=== PATIENT | male | born 1960 | race Caucasian/White ===

== ENCOUNTER 2017-11-27 22:08 | Inpatient (IN) | payer OTHER ==
[2017-11-28] MEDS ORDERED: ONDANSETRON 4 MG INJ IV
[2017-11-28] MEDS ORDERED: NACL 0.9% 3 ML SYG IV
[2017-11-28 00:54] LABS: ABNORMAL IP MESSAGE 1; HEMOGLOBIN 13.3 g/dl (14.0-18.0); MEAN CORPUSCULAR VOLUME 97.2 fl (82.0-101.0); MEAN PLATELET VOLUME 10.3 fl (7.4-10.4); PLATELET COUNT 94 10^3/UL (140-415); POSITIVE DIFF @See below; RED BLOOD COUNT 3.91 10^6/ul (4.70-6.10); RED CELL DISTRIBUTION WIDTH 18.4 % (11.5-14.5)
[2017-11-28 00:54] LABS: WHITE BLOOD COUNT 1.6 10^3/ul (4.8-10.8)
[2017-11-28 00:58] LABS: ADD MAN DIFF? YES
[2017-11-28 00:59] LABS: PATH REVIEW? YES
[2017-11-28 01:14] LABS: ANION GAP 23 (8-16); BLOOD UREA NITROGEN 8 mg/dl (7-20); CALCIUM 8.7 mg/dl (8.4-10.2); CARBON DIOXIDE 21 mmol/L (21-31); CHLORIDE 101 mmol/L (97-110); CREATININE 0.54 mg/dl (0.61-1.24); GLUCOSE 259 mg/dl (70-220); POTASSIUM 3.8 mmol/L (3.5-5.1); SODIUM 141 mmol/L (135-144)
[2017-11-28 01:21] LABS: B-TYPE NATRIURETIC PEPTIDE 42 PG/ML (0-125)
[2017-11-28] MEDS: CHLORDIAZEPOXIDE 25 MG CAP PO ×4 (01:36→20:33)
[2017-11-28 03:39] LABS: GIANT THROMBO% (M) 9 % (0-0); LYMPHOCYTES #M 0.2 10^3/ul (0.8-2.9); LYMPHOCYTES % (M) 15 % (15-51); MONOCYTES % (M) 4 % (0-11); MYELOCYTES % (M) 1 % (0-0); PLATELET ESTIMATE DECREASED; SEGMENTED NEUTROPHILS (M) % 80 % (39-77)
[2017-11-28] MEDS: ACETAMINOPHEN 325 MG TAB PO ×2 (03:56→10:32)
[2017-11-28 07:03] LABS: ADD MAN DIFF? NO
[2017-11-28 07:12] LABS: ABNORMAL IP MESSAGE 1; BASOPHILS % 0.2 % (0.0-2.0); HEMATOCRIT 37.8 % (42.0-52.0); HEMOGLOBIN 13.3 g/dl (14.0-18.0); LYMPHOCYTES # 0.6 10^3/ul (0.8-2.9); LYMPHOCYTES % 14.8 % (15.0-51.0); MEAN CORPUSCULAR HEMOGLOBIN 33.8 pg (29.0-33.0); MEAN CORPUSCULAR HGB CONC 35.2 g/dl (32.0-37.0); MEAN CORPUSCULAR VOLUME 96.2 fl (82.0-101.0); MEAN PLATELET VOLUME 11.1 fl (7.4-10.4); MONOCYTE # 0.3 10^3/ul (0.3-0.9); MONOCYTES % 8.1 % (0.0-11.0); NEUTROPHIL # 3.1 10^3/ul (1.6-7.5); NEUTROPHILS % 76.7 % (39.0-77.0); PLATELET COUNT 96 10^3/UL (140-415); POSITIVE DIFF @See below; RED BLOOD COUNT 3.93 10^6/ul (4.70-6.10)
[2017-11-28 07:12] LABS: WHITE BLOOD COUNT 4.1 10^3/ul (4.8-10.8)
[2017-11-28 07:34] LABS: ALANINE AMINOTRANSFERASE 101 IU/L (13-69); ALBUMIN 3.9 g/dl (3.3-4.9); ALKALINE PHOSPHATASE 114 IU/L (42-121); ANION GAP 18 (8-16); ASPARTATE AMINO TRANSFERASE 222 IU/L (15-46); BILIRUBIN,INDIRECT 0.8 mg/dl (0-1.1); BILIRUBIN,TOTAL 0.8 mg/dl (0.2-1.3); BLOOD UREA NITROGEN 8 mg/dl (7-20); CALCIUM 8.7 mg/dl (8.4-10.2); CARBON DIOXIDE 26 mmol/L (21-31); CHLORIDE 101 mmol/L (97-110); CHOL/HDL RATIO 2.5 RATIO; CHOLESTEROL 130 mg/dl (100-200); GLUCOSE 141 mg/dl (70-220); HDL CHOLESTEROL 51 mg/dl (28-71); LDL CHOLESTEROL,CALCULATED 70 mg/dl; SODIUM 141 mmol/L (135-144); TOTAL PROTEIN 6.9 g/dl (6.1-8.1); TRIGLYCERIDES 46 mg/dl (0-149)
[2017-11-28 07:37] LABS: MAGNESIUM 0.8 mg/dl (1.7-2.5)
[2017-11-28 07:59] LABS: BENZODIAZEPINES Positive (NEGATIVE)
[2017-11-28 08:02] LABS: HEMOGLOBIN A1C 5.3 % (0-5.9)
[2017-11-28 08:12] LABS: AMPHETAMINE/METHAMPHETAMINE Negative (NEGATIVE); BARBITURATES Negative (NEGATIVE); CANNABINOIDS Negative (NEGATIVE); COCAINE Negative (NEGATIVE); OPIATES Negative (NEGATIVE)
[2017-11-28] MEDS: NITROGLYCERIN (SL) 0.4 MG TAB SL (08:22)
[2017-11-28] MEDS ORDERED: NITROGLYCERIN (SL) 0.4 MG TAB SL (08:30)
[2017-11-28 08:34] LABS: AADO2 Arterial 83.6 mmHg (7.0-24.0); Allen Test ACCEPTAB; Arterial Base Excess 3.9 mmol/L (-3.0-3); Arterial Blood Gas Oxygen Sat 93.5 mmHG (95.0-98.0); Arterial COHb 0.9 % (0.0-3.0); Arterial Fraction of Oxyhgb 92.5 % (93.0-99.0); Arterial HCO3 26.9 mmol/L (22.0-26.0); Arterial MetHb 0.2 % (0.0-1.5); Arterial Total Hemglobin 14.3 g/dl (12.0-18.0); Arterial pCO2 35.4 mmhg (35-45); MODE NASAL CANNULA; Site Right Radial
[2017-11-28] MEDS ORDERED: MULTIVITAMINS 10 ML, THIAMINE 100 MG, FOLIC ACID 1 MG in SOD CHLORIDE 0.9% 1,000 ML IVPB (09:00)
[2017-11-28] MEDS: MAGNESIUM SULFATE 3 GM in DEXTROSE 5% 100 ML IVPB (09:20)
[2017-11-28 09:25] LABS: CREATINE KINASE 94 IU/L (23-200)
[2017-11-28 09:38] LABS: CK INDEX 1.4
[2017-11-28 09:39] LABS: CK-MB 1.36 ng/ml (0.0-2.4); TROPONIN-I < 0.012 ng/ml (0.00-0.12)
[2017-11-28] MEDS: FOLIC ACID 1 MG TAB PO (12:40)
[2017-11-28] MEDS: MULTIVITAMINS THERAPEUTIC TAB PO (12:40)
[2017-11-28] MEDS: THIAMINE 200 MG INJ IM (12:41)
[2017-11-28 15:17] LABS: CREATINE KINASE 121 IU/L (23-200)
[2017-11-28 15:19] LABS: MAGNESIUM 1.7 mg/dl (1.7-2.5)
[2017-11-28] MEDS: ALBUTEROL/IPRATROPIUM (NEB) 3 ML AMP HHN ×2 (15:22→19:35)
[2017-11-28 15:30] LABS: CK INDEX 1.3
[2017-11-28 15:33] LABS: CK-MB 1.54 ng/ml (0.0-2.4); TROPONIN-I < 0.012 ng/ml (0.00-0.12)
[2017-11-28] MEDS ORDERED: ACETAMINOPHEN 325 MG TAB PO (16:00)
[2017-11-28] MEDS: LORAZEPAM 2 MG INJ IV (19:38)
[2017-11-29] MEDS: CHLORDIAZEPOXIDE 25 MG CAP PO ×4 (02:44→17:36)
[2017-11-29 06:14] LABS: ADD MAN DIFF? NO
[2017-11-29 06:22] LABS: ABNORMAL IP MESSAGE 1; BASOPHILS % 0.6 % (0.0-2.0); EOSINOPHILS % 0.6 % (0.0-7.0); HEMATOCRIT 40.2 % (42.0-52.0); HEMOGLOBIN 14.3 g/dl (14.0-18.0); LYMPHOCYTES # 1.2 10^3/ul (0.8-2.9); LYMPHOCYTES % 35.5 % (15.0-51.0); MEAN CORPUSCULAR HEMOGLOBIN 34.5 pg (29.0-33.0); MEAN CORPUSCULAR HGB CONC 35.6 g/dl (32.0-37.0); MEAN CORPUSCULAR VOLUME 96.9 fl (82.0-101.0); MEAN PLATELET VOLUME 11.9 fl (7.4-10.4); MONOCYTE # 0.3 10^3/ul (0.3-0.9); MONOCYTES % 8.1 % (0.0-11.0); NEUTROPHIL # 1.9 10^3/ul (1.6-7.5); NEUTROPHILS % 54.9 % (39.0-77.0); PLATELET COUNT 91 10^3/UL (140-415); POSITIVE DIFF @See below; RED BLOOD COUNT 4.15 10^6/ul (4.70-6.10)
[2017-11-29 06:22] LABS: WHITE BLOOD COUNT 3.5 10^3/ul (4.8-10.8)
[2017-11-29 06:45] LABS: ANION GAP 15 (8-16); BLOOD UREA NITROGEN 9 mg/dl (7-20); CARBON DIOXIDE 25 mmol/L (21-31); CHLORIDE 104 mmol/L (97-110); CREATININE 0.55 mg/dl (0.61-1.24); GLUCOSE 110 mg/dl (70-220); MAGNESIUM 1.4 mg/dl (1.7-2.5); PHOSPHORUS 3.2 mg/dl (2.5-4.9); POTASSIUM 3.8 mmol/L (3.5-5.1); SODIUM 140 mmol/L (135-144)
[2017-11-29] MEDS: ALBUTEROL/IPRATROPIUM (NEB) 3 ML AMP HHN (07:36)
[2017-11-29 07:48] LABS: FOLATE 16.9 ng/ml (2.8-20.0)
[2017-11-29] MEDS: MAGNESIUM OXIDE 400 MG TAB PO ×2 (08:24→11:55)
[2017-11-29] MEDS: THIAMINE 200 MG INJ IM (08:25)
[2017-11-29] MEDS: FOLIC ACID 1 MG TAB PO (08:25)
[2017-11-29] MEDS: MULTIVITAMINS THERAPEUTIC TAB PO (08:25)
[2017-11-29] MEDS ORDERED: NICOTINE POLACRILEX 4 MG GUM BUCCAL (13:00)
[2017-11-29] MEDS: NICOTINE (21 MG/24 HR) PATCH TRANSDERM (13:14)
[2017-11-29] MEDS: ARTIFICIAL TEARS 15 ML OPH BOTH EYES (13:14)
[2017-11-29] MEDS: NICOTINE POLACRILEX 2 MG GUM MM ×2 (15:21→17:36)
[2017-11-29] MEDS: LORAZEPAM 2 MG INJ IV (15:48)
[2017-11-29] MEDS: AZITHROMYCIN 250 MG TAB PO (15:48)
[2017-11-29] MEDS: predniSONE 20 MG TAB PO (15:48)
[2017-11-30] MEDS ORDERED: CHLORDIAZEPOXIDE 25 MG CAP PO (01:00)
[2017-11-30] MEDS ORDERED: AZITHROMYCIN 250 MG TAB PO (09:00)
== END 2017-11-29 19:57 | disposition left against medical advice (07) | DRG 189 ==
LOC: MS2 22:08
DX: J96.01 Acute respiratory failure with hypoxia (principal); F10.239 Alcohol dependence with withdrawal, unspecified; J43.9 Emphysema, unspecified; R07.9 Chest pain, unspecified; F10.229 Alcohol dependence with intoxication, unspecified; F17.200 Nicotine dependence, unspecified, uncomplicated; D53.9 Nutritional anemia, unspecified; Z53.21 Procedure and treatment not carried out due to patient leaving prior to being seen by health care provider
CPT/HCPCS: 36600; 71045; 80048; 80053; 80061; 80306; 80307; 82550; 82553; 82607; 82746; 82803; 83036; 83735; 83880; 84100; 84443; 84484; 85025; 93005; 93306; 94640; 94664; 97110; 97116; 97161; 97530

== ENCOUNTER 2017-11-30 08:49 | Emergency (ER) | payer OTHER | END 2017-11-30 10:22 | disposition home or self-care (01) | LOC: E/R 08:49 | DX: F10.929 Alcohol use, unspecified with intoxication, unspecified (principal); R10.12 Left upper quadrant pain; F91.8 Other conduct disorders; J44.9 Chronic obstructive pulmonary disease, unspecified; Z87.891 Personal history of nicotine dependence | CPT/HCPCS: 99283-25; Z7502 ==

== ENCOUNTER 2018-12-02 17:55 | Emergency (ER) | payer SELFPAY, OTHER | END 2018-12-02 21:12 | disposition left against medical advice (07) | LOC: E/R 17:55 | DX: Z53.21 Procedure and treatment not carried out due to patient leaving prior to being seen by health care provider (principal) ==

== ENCOUNTER 2018-12-06 21:56 | Inpatient (IN) | payer OTHER ==
[2018-12-06] MEDS: KETOROLAC 30 MG INJ IV (23:14)
[2018-12-07] MEDS ORDERED: ALBUTEROL/IPRATROPIUM (NEB) 3 ML AMP HHN
[2018-12-07] MEDS: DEXTROSE 5%-0.45% NACL 1,000 ML IV ×4 (00:10→23:43)
[2018-12-07] MEDS: HYDROCODONE/APAP (5/325) TAB PO ×2 (02:49→11:22)
[2018-12-07] MEDS: ONDANSETRON 4 MG INJ IV ×2 (03:29→11:52)
[2018-12-07] MEDS ORDERED: LORAZEPAM 2 MG INJ IV (03:30)
[2018-12-07] MEDS: LORAZEPAM 2 MG INJ IV ×3 (03:42→17:41)
[2018-12-07 05:19] LABS: ADD MAN DIFF? NO
[2018-12-07 05:27] LABS: ABNORMAL IP MESSAGE 1; BASOPHILS % 0.8 % (0.0-2.0); HEMATOCRIT 41.5 % (42.0-52.0); HEMOGLOBIN 14.1 g/dl (14.0-18.0); LYMPHOCYTES % 25.6 % (15.0-51.0); MEAN CORPUSCULAR HEMOGLOBIN 32.6 pg (29.0-33.0); MEAN CORPUSCULAR VOLUME 96.1 fl (82.0-101.0); MEAN PLATELET VOLUME 10.8 fl (7.4-10.4); MONOCYTE # 0.3 10^3/ul (0.3-0.9); NEUTROPHIL # 2.5 10^3/ul (1.6-7.5); NEUTROPHILS % 65.1 % (39.0-77.0); PLATELET COUNT 86 10^3/UL (140-415); POSITIVE DIFF @See below; RED BLOOD COUNT 4.32 10^6/ul (4.70-6.10); RED CELL DISTRIBUTION WIDTH 17.3 % (11.5-14.5)
[2018-12-07 05:27] LABS: WHITE BLOOD COUNT 3.9 10^3/ul (4.8-10.8)
[2018-12-07 05:34] LABS: MAGNESIUM 1.2 mg/dl (1.7-2.5)
[2018-12-07 05:34] LABS: PHOSPHORUS 4.1 mg/dl (2.5-4.9)
[2018-12-07] MEDS ORDERED: SOD CHLORIDE 0.9% 100 ML (09:19)
[2018-12-07] MEDS ORDERED: IOHEXOL 100 ML (09:20)
[2018-12-07] MEDS: FOLIC ACID 1 MG TAB PO (09:23)
[2018-12-07] MEDS: FAMOTIDINE 20 MG INJ IV ×2 (09:23→20:36)
[2018-12-07] MEDS: CHLORDIAZEPOXIDE 25 MG CAP PO ×3 (09:23→20:36)
[2018-12-07] MEDS: MULTIVITAMINS THERAPEUTIC TAB PO (09:23)
[2018-12-07] MEDS: THIAMINE 100 MG TAB PO (09:33)
[2018-12-07] MEDS ORDERED: IOHEXOL 350MG/ML 50 ML BTL (10:26)
[2018-12-07] MEDS: KETOROLAC 30 MG INJ IV (11:52)
[2018-12-07] MEDS: MAGNESIUM SULFATE 2 GM/50 ML 50 ML IVPB (16:34)
[2018-12-07 18:43] LABS: HEMATOCRIT 37.3 % (42.0-52.0); HEMOGLOBIN 12.7 g/dl (14.0-18.0)
[2018-12-08 05:52] LABS: ADD MAN DIFF? NO; HAAIG REFLEX REFLEX FILED
[2018-12-08 06:01] LABS: WHITE BLOOD COUNT 3.4 10^3/ul (4.8-10.8)
[2018-12-08 06:01] LABS: ABNORMAL IP MESSAGE 1; BASOPHILS % 0.6 % (0.0-2.0); EOSINOPHILS % 0.6 % (0.0-7.0); HEMATOCRIT 39.7 % (42.0-52.0); HEMOGLOBIN 13.6 g/dl (14.0-18.0); LYMPHOCYTES % 29.8 % (15.0-51.0); MEAN CORPUSCULAR HEMOGLOBIN 32.2 pg (29.0-33.0); MEAN CORPUSCULAR HGB CONC 34.3 g/dl (32.0-37.0); MEAN CORPUSCULAR VOLUME 93.9 fl (82.0-101.0); MEAN PLATELET VOLUME 11.3 fl (7.4-10.4); MONOCYTE # 0.3 10^3/ul (0.3-0.9); MONOCYTES % 8.3 % (0.0-11.0); NEUTROPHIL # 2.1 10^3/ul (1.6-7.5); NEUTROPHILS % 60.4 % (39.0-77.0); PLATELET COUNT 63 10^3/UL (140-415); POSITIVE DIFF @See below; RED BLOOD COUNT 4.23 10^6/ul (4.70-6.10); RED CELL DISTRIBUTION WIDTH 16.3 % (11.5-14.5)
[2018-12-08 06:16] LABS: INR 0.99; PROTIME 13.2 Sec (11.9-14.9)
[2018-12-08 06:32] LABS: ALANINE AMINOTRANSFERASE 34 IU/L (13-69); ALBUMIN 3.7 g/dl (3.3-4.9); ALBUMIN/GLOBULIN RATIO 1.19; ALKALINE PHOSPHATASE 142 IU/L (42-121); ANION GAP 10 (5-13); ASPARTATE AMINO TRANSFERASE 91 IU/L (15-46); BILIRUBIN,INDIRECT 1.1 mg/dl (0-1.1); BILIRUBIN,TOTAL 1.1 mg/dl (0.2-1.3); BLOOD UREA NITROGEN 9 mg/dl (7-20); CALCIUM 8.7 mg/dl (8.4-10.2); CARBON DIOXIDE 30 mmol/L (21-31); CHLORIDE 97 mmol/L (97-110); CREATININE 0.44 mg/dl (0.61-1.24); Estimated GFR > 60 mL/min (>60); GLUCOSE 136 mg/dl (70-220); POTASSIUM 3.2 mmol/L (3.5-5.1); SODIUM 137 mmol/L (135-144); TOTAL PROTEIN 6.8 g/dl (6.1-8.1)
[2018-12-08 08:03] LABS: PHOSPHORUS 1.5 mg/dl (2.5-4.9)
[2018-12-08 08:03] LABS: MAGNESIUM 1.3 mg/dl (1.7-2.5)
[2018-12-08 08:33] LABS: HEPATITIS B SURFACE ANTIGEN NEGATIVE (NEGATIVE)
[2018-12-08 08:38] LABS: HEMOGLOBIN A1C 5.5 % (0-5.9)
[2018-12-08 08:51] LABS: HEPATITIS B CORE ANTIBODY NEGATIVE (NEGATIVE); HEPATITIS C VIRAL ANTIBODY NEGATIVE (NEGATIVE)
[2018-12-08] MEDS: DEXTROSE 5%-0.45% NACL 1,000 ML IV ×2 (10:22→17:12)
[2018-12-08] MEDS: MULTIVITAMINS THERAPEUTIC TAB PO (11:03)
[2018-12-08] MEDS: CHLORDIAZEPOXIDE 25 MG CAP PO ×3 (11:03→20:08)
[2018-12-08] MEDS: FOLIC ACID 1 MG TAB PO (11:03)
[2018-12-08] MEDS: THIAMINE 100 MG TAB PO (11:03)
[2018-12-08] MEDS: FAMOTIDINE 20 MG INJ IV ×2 (11:03→20:08)
[2018-12-08] MEDS: ENOXAPARIN 40 MG/0.4 ML SYG SC (11:05)
[2018-12-08 14:58] LABS: LIPASE 393 U/L (23-300)
[2018-12-08 14:58] LABS: AMYLASE 123 U/L (11-123)
[2018-12-08] MEDS: MAGNESIUM SULFATE 3 GM in DEXTROSE 5% 100 ML IVPB (15:25)
[2018-12-08] MEDS: POTASSIUM PHOSPHATE 30 MM in SOD CHLORIDE 0.9% 250 ML IVPB (18:02)
[2018-12-09] MEDS: DEXTROSE 5%-0.45% NACL 1,000 ML IV ×5 (01:02→21:45)
[2018-12-09 05:45] LABS: ADD MAN DIFF? NO
[2018-12-09 05:51] LABS: WHITE BLOOD COUNT 3.9 10^3/ul (4.8-10.8)
[2018-12-09 05:51] LABS: ABNORMAL IP MESSAGE 1; BASOPHILS % 0.5 % (0.0-2.0); HEMATOCRIT 39.9 % (42.0-52.0); HEMOGLOBIN 13.7 g/dl (14.0-18.0); LYMPHOCYTES # 1.2 10^3/ul (0.8-2.9); LYMPHOCYTES % 30.3 % (15.0-51.0); MEAN CORPUSCULAR HEMOGLOBIN 32.2 pg (29.0-33.0); MEAN CORPUSCULAR HGB CONC 34.3 g/dl (32.0-37.0); MEAN CORPUSCULAR VOLUME 93.9 fl (82.0-101.0); MEAN PLATELET VOLUME 11.2 fl (7.4-10.4); MONOCYTE # 0.4 10^3/ul (0.3-0.9); NEUTROPHIL # 2.3 10^3/ul (1.6-7.5); NEUTROPHILS % 57.9 % (39.0-77.0); PLATELET COUNT 60 10^3/UL (140-415); POSITIVE DIFF @See below; RED BLOOD COUNT 4.25 10^6/ul (4.70-6.10); RED CELL DISTRIBUTION WIDTH 15.6 % (11.5-14.5)
[2018-12-09 06:17] LABS: PHOSPHORUS 2.9 mg/dl (2.5-4.9)
[2018-12-09 06:17] LABS: MAGNESIUM 1.5 mg/dl (1.7-2.5)
[2018-12-09 06:30] LABS: ALANINE AMINOTRANSFERASE 37 IU/L (13-69); ALBUMIN 3.7 g/dl (3.3-4.9); ALBUMIN/GLOBULIN RATIO 1.08; ALKALINE PHOSPHATASE 149 IU/L (42-121); AMYLASE 91 U/L (11-123); ANION GAP 15 (5-13); ASPARTATE AMINO TRANSFERASE 88 IU/L (15-46); BILIRUBIN,INDIRECT 0.9 mg/dl (0-1.1); BILIRUBIN,TOTAL 0.9 mg/dl (0.2-1.3); BLOOD UREA NITROGEN 7 mg/dl (7-20); CALCIUM 8.9 mg/dl (8.4-10.2); CARBON DIOXIDE 22 mmol/L (21-31); CHLORIDE 100 mmol/L (97-110); CREATININE 0.47 mg/dl (0.61-1.24); Estimated GFR > 60 mL/min (>60); GLUCOSE 128 mg/dl (70-220); LIPASE 403 U/L (23-300); SODIUM 137 mmol/L (135-144); TOTAL PROTEIN 7.1 g/dl (6.1-8.1)
[2018-12-09 06:37] LABS: POTASSIUM 3.3 mmol/L (3.5-5.1)
[2018-12-09] MEDS: FOLIC ACID 1 MG TAB PO (09:25)
[2018-12-09] MEDS: MULTIVITAMINS THERAPEUTIC TAB PO (09:25)
[2018-12-09] MEDS: FAMOTIDINE 20 MG INJ IV ×2 (09:25→21:19)
[2018-12-09] MEDS: THIAMINE 100 MG TAB PO (09:25)
[2018-12-09] MEDS: CHLORDIAZEPOXIDE 25 MG CAP PO ×3 (09:26→21:19)
[2018-12-09] MEDS: ENOXAPARIN 40 MG/0.4 ML SYG SC (09:27)
[2018-12-09] MEDS: ARFORMOTEROL TARTRATE 15MCG/2 ML AMP NEB ×3 (11:22→21:09)
[2018-12-09] MEDS: MAGNESIUM SULFATE 2 GM/50 ML 50 ML IVPB (14:19)
[2018-12-09] MEDS: POTASSIUM CHLORIDE 100 ML IVPB (16:25)
[2018-12-10] MEDS: DEXTROSE 5%-0.45% NACL 1,000 ML IV ×5 (02:25→22:48)
[2018-12-10] MEDS: ARFORMOTEROL TARTRATE 15MCG/2 ML AMP NEB ×2 (08:49→20:33)
[2018-12-10] MEDS: ENOXAPARIN 40 MG/0.4 ML SYG SC (09:00)
[2018-12-10] MEDS: THIAMINE 100 MG TAB PO (09:00)
[2018-12-10] MEDS: CHLORDIAZEPOXIDE 25 MG CAP PO ×3 (09:00→20:36)
[2018-12-10] MEDS: FAMOTIDINE 20 MG INJ IV ×2 (09:00→20:36)
[2018-12-10] MEDS: MULTIVITAMINS THERAPEUTIC TAB PO (09:00)
[2018-12-10] MEDS: FOLIC ACID 1 MG TAB PO (09:00)
[2018-12-10] MEDS: HYDROCODONE/APAP (5/325) TAB PO ×3 (10:44→20:36)
[2018-12-11] MEDS: HYDROCODONE/APAP (5/325) TAB PO ×2 (06:12→16:49)
[2018-12-11] MEDS: ARFORMOTEROL TARTRATE 15MCG/2 ML AMP NEB ×2 (08:22→20:00)
[2018-12-11] MEDS: FAMOTIDINE 20 MG INJ IV ×2 (08:25→20:24)
[2018-12-11] MEDS: DEXTROSE 5%-0.45% NACL 1,000 ML IV ×2 (08:27→16:53)
[2018-12-11] MEDS: MULTIVITAMINS THERAPEUTIC TAB PO (09:00)
[2018-12-11] MEDS: FOLIC ACID 1 MG TAB PO (09:00)
[2018-12-11] MEDS: CHLORDIAZEPOXIDE 25 MG CAP PO ×3 (09:00→20:24)
[2018-12-11] MEDS: THIAMINE 100 MG TAB PO (09:00)
[2018-12-11 11:07] LABS: ADD MAN DIFF? NO
[2018-12-11 11:16] LABS: BASOPHILS % 0.3 % (0.0-2.0); EOSINOPHILS # 0.1 10^3/ul (0.0-0.5); EOSINOPHILS % 1.5 % (0.0-7.0); HEMATOCRIT 36.3 % (42.0-52.0); HEMOGLOBIN 12.4 g/dl (14.0-18.0); LYMPHOCYTES % 25.8 % (15.0-51.0); MEAN CORPUSCULAR HEMOGLOBIN 32.7 pg (29.0-33.0); MEAN CORPUSCULAR HGB CONC 34.2 g/dl (32.0-37.0); MEAN CORPUSCULAR VOLUME 95.8 fl (82.0-101.0); MEAN PLATELET VOLUME 11.6 fl (7.4-10.4); MONOCYTE # 0.7 10^3/ul (0.3-0.9); MONOCYTES % 16.8 % (0.0-11.0); NEUTROPHIL # 2.2 10^3/ul (1.6-7.5); NEUTROPHILS % 55.3 % (39.0-77.0); PLATELET COUNT 114 10^3/UL (140-415); RED BLOOD COUNT 3.79 10^6/ul (4.70-6.10); RED CELL DISTRIBUTION WIDTH 15.8 % (11.5-14.5)
[2018-12-11 11:44] LABS: ALANINE AMINOTRANSFERASE 31 IU/L (13-69); ALBUMIN 3.2 g/dl (3.3-4.9); ALKALINE PHOSPHATASE 118 IU/L (42-121); AMYLASE 92 U/L (11-123); ANION GAP 9 (5-13); ASPARTATE AMINO TRANSFERASE 52 IU/L (15-46); BILIRUBIN,INDIRECT 0.7 mg/dl (0-1.1); BILIRUBIN,TOTAL 0.7 mg/dl (0.2-1.3); BLOOD UREA NITROGEN 7 mg/dl (7-20); CALCIUM 8.8 mg/dl (8.4-10.2); CARBON DIOXIDE 24 mmol/L (21-31); CHLORIDE 105 mmol/L (97-110); Estimated GFR > 60 mL/min (>60); GLUCOSE 145 mg/dl (70-220); LIPASE 256 U/L (23-300); POTASSIUM 3.1 mmol/L (3.5-5.1); SODIUM 138 mmol/L (135-144); TOTAL PROTEIN 6.4 g/dl (6.1-8.1)
[2018-12-11 12:05] LABS: MAGNESIUM 1.2 mg/dl (1.7-2.5)
[2018-12-12] MEDS: DEXTROSE 5%-0.45% NACL 1,000 ML IV ×2 (02:15→04:32)
[2018-12-12 05:26] LABS: ADD MAN DIFF? NO
[2018-12-12 05:38] LABS: BASOPHILS % 0.5 % (0.0-2.0); EOSINOPHILS # 0.1 10^3/ul (0.0-0.5); EOSINOPHILS % 1.7 % (0.0-7.0); HEMATOCRIT 34.9 % (42.0-52.0); HEMOGLOBIN 12.1 g/dl (14.0-18.0); LYMPHOCYTES # 1.3 10^3/ul (0.8-2.9); MEAN CORPUSCULAR HEMOGLOBIN 33.2 pg (29.0-33.0); MEAN CORPUSCULAR HGB CONC 34.7 g/dl (32.0-37.0); MEAN CORPUSCULAR VOLUME 95.6 fl (82.0-101.0); MEAN PLATELET VOLUME 11.7 fl (7.4-10.4); MONOCYTE # 0.7 10^3/ul (0.3-0.9); MONOCYTES % 17.4 % (0.0-11.0); NEUTROPHILS % 48.9 % (39.0-77.0); PLATELET COUNT 135 10^3/UL (140-415); RED BLOOD COUNT 3.65 10^6/ul (4.70-6.10); RED CELL DISTRIBUTION WIDTH 15.9 % (11.5-14.5)
[2018-12-12 05:38] LABS: WHITE BLOOD COUNT 4.1 10^3/ul (4.8-10.8)
[2018-12-12 06:06] LABS: PHOSPHORUS 3.6 mg/dl (2.5-4.9)
[2018-12-12 06:06] LABS: ALANINE AMINOTRANSFERASE 31 IU/L (13-69); ALBUMIN 3.2 g/dl (3.3-4.9); ALBUMIN/GLOBULIN RATIO 1.06; ALKALINE PHOSPHATASE 121 IU/L (42-121); AMYLASE 76 U/L (11-123); ANION GAP 9 (5-13); ASPARTATE AMINO TRANSFERASE 44 IU/L (15-46); BILIRUBIN,INDIRECT 0.6 mg/dl (0-1.1); BILIRUBIN,TOTAL 0.6 mg/dl (0.2-1.3); BLOOD UREA NITROGEN 7 mg/dl (7-20); CALCIUM 8.5 mg/dl (8.4-10.2); CARBON DIOXIDE 22 mmol/L (21-31); CHLORIDE 108 mmol/L (97-110); CREATININE 0.51 mg/dl (0.61-1.24); Estimated GFR > 60 mL/min (>60); GLUCOSE 128 mg/dl (70-220); LIPASE 210 U/L (23-300); MAGNESIUM 1.1 mg/dl (1.7-2.5); SODIUM 139 mmol/L (135-144); TOTAL PROTEIN 6.2 g/dl (6.1-8.1)
[2018-12-12 06:15] LABS: POTASSIUM 2.9 mmol/L (3.5-5.1)
[2018-12-12] MEDS: POTASSIUM CHLORIDE (SR) 20 MEQ TAB PO (07:58)
[2018-12-12] MEDS: HYDROCODONE/APAP (5/325) TAB PO ×2 (07:58→16:14)
[2018-12-12] MEDS: ARFORMOTEROL TARTRATE 15MCG/2 ML AMP NEB ×2 (08:41→20:47)
[2018-12-12] MEDS: THIAMINE 100 MG TAB PO (09:01)
[2018-12-12] MEDS: CHLORDIAZEPOXIDE 25 MG CAP PO ×3 (09:01→20:35)
[2018-12-12] MEDS: MULTIVITAMINS THERAPEUTIC TAB PO (09:01)
[2018-12-12] MEDS: FOLIC ACID 1 MG TAB PO (09:01)
[2018-12-12] MEDS: MAGNESIUM SULFATE 3 GM in DEXTROSE 5% 100 ML IVPB (12:18)
[2018-12-12] MEDS: FAMOTIDINE 20 MG INJ IV (12:18)
[2018-12-12] MEDS: NICOTINE POLACRILEX 2 MG GUM BUCCAL (18:27)
[2018-12-12] MEDS: FAMOTIDINE 20 MG TAB PO (20:35)
[2018-12-12 23:06] LABS: POTASSIUM 3.8 mmol/L (3.5-5.1)
[2018-12-13] MEDS: NICOTINE POLACRILEX 2 MG GUM BUCCAL (02:55)
[2018-12-13] MEDS: HYDROCODONE/APAP (5/325) TAB PO ×3 (02:55→18:28)
[2018-12-13 05:25] LABS: ADD MAN DIFF? NO
[2018-12-13 05:37] LABS: WHITE BLOOD COUNT 4.3 10^3/ul (4.8-10.8)
[2018-12-13 05:37] LABS: BASOPHILS % 0.7 % (0.0-2.0); EOSINOPHILS # 0.1 10^3/ul (0.0-0.5); EOSINOPHILS % 1.9 % (0.0-7.0); HEMATOCRIT 35.9 % (42.0-52.0); HEMOGLOBIN 12.2 g/dl (14.0-18.0); LYMPHOCYTES # 1.4 10^3/ul (0.8-2.9); LYMPHOCYTES % 31.5 % (15.0-51.0); MEAN CORPUSCULAR HEMOGLOBIN 32.9 pg (29.0-33.0); MEAN CORPUSCULAR VOLUME 96.8 fl (82.0-101.0); MEAN PLATELET VOLUME 10.9 fl (7.4-10.4); MONOCYTE # 0.9 10^3/ul (0.3-0.9); MONOCYTES % 21.9 % (0.0-11.0); NEUTROPHIL # 1.9 10^3/ul (1.6-7.5); NEUTROPHILS % 43.8 % (39.0-77.0); PLATELET COUNT 203 10^3/UL (140-415); RED BLOOD COUNT 3.71 10^6/ul (4.70-6.10); RED CELL DISTRIBUTION WIDTH 16.2 % (11.5-14.5)
[2018-12-13 05:48] LABS: MAGNESIUM 1.7 mg/dl (1.7-2.5)
[2018-12-13 05:48] LABS: PHOSPHORUS 4.1 mg/dl (2.5-4.9)
[2018-12-13 06:05] LABS: ALANINE AMINOTRANSFERASE 33 IU/L (13-69); ALBUMIN 3.5 g/dl (3.3-4.9); ALBUMIN/GLOBULIN RATIO 1.12; ALKALINE PHOSPHATASE 127 IU/L (42-121); AMYLASE 87 U/L (11-123); ANION GAP 10 (5-13); ASPARTATE AMINO TRANSFERASE 46 IU/L (15-46); BILIRUBIN,INDIRECT 0.5 mg/dl (0-1.1); BILIRUBIN,TOTAL 0.5 mg/dl (0.2-1.3); BLOOD UREA NITROGEN 8 mg/dl (7-20); CARBON DIOXIDE 22 mmol/L (21-31); CHLORIDE 109 mmol/L (97-110); CREATININE 0.55 mg/dl (0.61-1.24); Estimated GFR > 60 mL/min (>60); GLUCOSE 108 mg/dl (70-220); LIPASE 138 U/L (23-300); POTASSIUM 3.4 mmol/L (3.5-5.1); SODIUM 141 mmol/L (135-144); TOTAL PROTEIN 6.6 g/dl (6.1-8.1)
[2018-12-13] MEDS: THIAMINE 100 MG TAB PO (09:06)
[2018-12-13] MEDS: FAMOTIDINE 20 MG TAB PO ×2 (09:06→20:38)
[2018-12-13] MEDS: FOLIC ACID 1 MG TAB PO (09:06)
[2018-12-13] MEDS: CHLORDIAZEPOXIDE 25 MG CAP PO (09:06)
[2018-12-13] MEDS: MULTIVITAMINS THERAPEUTIC TAB PO (09:06)
[2018-12-13] MEDS: ARFORMOTEROL TARTRATE 15MCG/2 ML AMP NEB (09:29)
[2018-12-13] MEDS: POTASSIUM CHLORIDE 20 MEQ POWDER FOR ORAL SOLN PO (13:29)
[2018-12-13] MEDS: CHLORDIAZEPOXIDE 5 MG CAP PO ×2 (13:30→20:38)
[2018-12-13] MEDS: TIOTROPIUM 18 MCG CAPSULE INHA DEV INH (13:40)
[2018-12-13] MEDS: BENZONATATE 100 MG CAP PO (23:26)
[2018-12-14] MEDS: NICOTINE POLACRILEX 2 MG GUM BUCCAL ×3 (01:20→22:55)
[2018-12-14] MEDS: HYDROCODONE/APAP (5/325) TAB PO (01:20)
[2018-12-14 04:58] LABS: ADD MAN DIFF? NO
[2018-12-14 05:06] LABS: BASOPHIL # 0.1 10^3/ul (0.0-0.1); BASOPHILS % 1.2 % (0.0-2.0); EOSINOPHILS # 0.1 10^3/ul (0.0-0.5); EOSINOPHILS % 2.5 % (0.0-7.0); HEMATOCRIT 36.1 % (42.0-52.0); HEMOGLOBIN 12.1 g/dl (14.0-18.0); LYMPHOCYTES # 1.6 10^3/ul (0.8-2.9); LYMPHOCYTES % 36.8 % (15.0-51.0); MEAN CORPUSCULAR HEMOGLOBIN 32.7 pg (29.0-33.0); MEAN CORPUSCULAR HGB CONC 33.5 g/dl (32.0-37.0); MEAN CORPUSCULAR VOLUME 97.6 fl (82.0-101.0); MEAN PLATELET VOLUME 10.6 fl (7.4-10.4); MONOCYTES % 22.2 % (0.0-11.0); NEUTROPHIL # 1.6 10^3/ul (1.6-7.5); NEUTROPHILS % 37.1 % (39.0-77.0); PLATELET COUNT 274 10^3/UL (140-415); RED CELL DISTRIBUTION WIDTH 16.2 % (11.5-14.5)
[2018-12-14 05:06] LABS: WHITE BLOOD COUNT 4.3 10^3/ul (4.8-10.8)
[2018-12-14 05:27] LABS: ANION GAP 12 (5-13); BLOOD UREA NITROGEN 11 mg/dl (7-20); CALCIUM 9.4 mg/dl (8.4-10.2); CARBON DIOXIDE 21 mmol/L (21-31); CHLORIDE 108 mmol/L (97-110); CREATININE 0.54 mg/dl (0.61-1.24); Estimated GFR > 60 mL/min (>60); GLUCOSE 115 mg/dl (70-220); MAGNESIUM 1.4 mg/dl (1.7-2.5); PHOSPHORUS 4.4 mg/dl (2.5-4.9); POTASSIUM 3.8 mmol/L (3.5-5.1); SODIUM 141 mmol/L (135-144)
[2018-12-14] MEDS: FAMOTIDINE 20 MG TAB PO ×2 (09:27→20:51)
[2018-12-14] MEDS: FOLIC ACID 1 MG TAB PO (09:27)
[2018-12-14] MEDS: FLUTICASONE/VILANTEROL 100-25 INH (09:27)
[2018-12-14] MEDS: THIAMINE 100 MG TAB PO (09:27)
[2018-12-14] MEDS: MULTIVITAMINS THERAPEUTIC TAB PO (09:27)
[2018-12-14] MEDS: CHLORDIAZEPOXIDE 5 MG CAP PO (09:28)
[2018-12-14] MEDS: TIOTROPIUM 18 MCG CAPSULE INHA DEV INH (09:28)
[2018-12-14] MEDS: NACL 0.9% 3 ML SYG IV (09:29)
[2018-12-14] MEDS ORDERED: ALBUTEROL/IPRATROPIUM (NEB) 3 ML AMP HHN (10:30)
[2018-12-14] MEDS: MAGNESIUM OXIDE 400 MG TAB PO (10:53)
[2018-12-14 11:03] LABS: AADO2 Arterial 63.2 mmHg (7.0-24.0); Allen Test ACCEPTAB; Arterial Base Excess -0.4 mmol/L (-3.0-3); Arterial Blood Gas Oxygen Sat 94.7 mmHG (95.0-98.0); Arterial COHb 0.4 % (0.0-3.0); Arterial Fraction of Oxyhgb 94.1 % (93.0-99.0); Arterial HCO3 22.2 mmol/L (22.0-26.0); Arterial MetHb 0.2 % (0.0-1.5); Arterial pCO2 30.8 mmhg (35-45); MODE NASAL CANNULA; Site Right Radial
[2018-12-14 11:12] LABS: LACTIC ACID 0.9 mmol/L (0.5-2.0)
[2018-12-14 11:32] LABS: AMMONIA 11 umol/l (9-30)
[2018-12-14] MEDS: METHYLPREDNISOLONE 125 MG INJ IV (13:07)
[2018-12-14] MEDS: SOD CHLORIDE 0.9% 1,000 ML IV (13:08)
[2018-12-14] MEDS: BENZONATATE 100 MG CAP PO (13:19)
[2018-12-14] MEDS: ACETAMINOPHEN 325 MG TAB PO (13:20)
[2018-12-14] MEDS: LEVOFLOXACIN 750MG/D5W (PMX) 150 ML IVPB (14:21)
[2018-12-14] MEDS: BUDESONIDE (NEB) 0.5MG/2ML AMP HHN ×2 (14:40→19:14)
[2018-12-14] MEDS: ALBUTEROL/IPRATROPIUM (NEB) 3 ML AMP HHN ×2 (14:40→19:14)
[2018-12-14] MEDS: KETOROLAC 30 MG INJ IV (22:55)
[2018-12-15] MEDS: ONDANSETRON 4 MG INJ IV ×2 (00:25→17:37)
[2018-12-15] MEDS: BENZONATATE 100 MG CAP PO (02:16)
[2018-12-15] MEDS: ACETAMINOPHEN 325 MG TAB PO (03:40)
[2018-12-15 05:45] LABS: ADD MAN DIFF? NO
[2018-12-15 05:51] LABS: WHITE BLOOD COUNT 4.5 10^3/ul (4.8-10.8)
[2018-12-15 05:52] LABS: BASOPHILS % 0.7 % (0.0-2.0); LYMPHOCYTES # 1.2 10^3/ul (0.8-2.9); LYMPHOCYTES % 26.3 % (15.0-51.0); MEAN CORPUSCULAR HEMOGLOBIN 32.9 pg (29.0-33.0); MEAN CORPUSCULAR HGB CONC 33.3 g/dl (32.0-37.0); MEAN CORPUSCULAR VOLUME 98.6 fl (82.0-101.0); MONOCYTE # 1.1 10^3/ul (0.3-0.9); MONOCYTES % 24.1 % (0.0-11.0); NEUTROPHIL # 2.2 10^3/ul (1.6-7.5); NEUTROPHILS % 48.5 % (39.0-77.0); PLATELET COUNT 317 10^3/UL (140-415); RED BLOOD COUNT 3.65 10^6/ul (4.70-6.10); RED CELL DISTRIBUTION WIDTH 15.9 % (11.5-14.5)
[2018-12-15 06:18] LABS: AMMONIA 34 umol/l (9-30)
[2018-12-15 06:20] LABS: MAGNESIUM 1.5 mg/dl (1.7-2.5)
[2018-12-15 06:57] LABS: ALANINE AMINOTRANSFERASE 27 IU/L (13-69); ALBUMIN 3.8 g/dl (3.3-4.9); ALBUMIN/GLOBULIN RATIO 1.08; ALKALINE PHOSPHATASE 229 IU/L (42-121); ANION GAP 12 (5-13); ASPARTATE AMINO TRANSFERASE 38 IU/L (15-46); BILIRUBIN,INDIRECT 0.2 mg/dl (0-1.1); BILIRUBIN,TOTAL 0.2 mg/dl (0.2-1.3); BLOOD UREA NITROGEN 16 mg/dl (7-20); CALCIUM 9.3 mg/dl (8.4-10.2); CARBON DIOXIDE 21 mmol/L (21-31); CHLORIDE 105 mmol/L (97-110); CREATININE 0.65 mg/dl (0.61-1.24); Estimated GFR > 60 mL/min (>60); GLUCOSE 350 mg/dl (70-220); POTASSIUM 4.5 mmol/L (3.5-5.1); SODIUM 138 mmol/L (135-144); TOTAL PROTEIN 7.3 g/dl (6.1-8.1)
[2018-12-15] MEDS: ALBUTEROL/IPRATROPIUM (NEB) 3 ML AMP HHN ×3 (08:00→20:27)
[2018-12-15] MEDS: BUDESONIDE (NEB) 0.5MG/2ML AMP HHN ×2 (08:09→20:27)
[2018-12-15] MEDS: FAMOTIDINE 20 MG TAB PO ×2 (09:10→21:35)
[2018-12-15] MEDS: MULTIVITAMINS THERAPEUTIC TAB PO (09:10)
[2018-12-15] MEDS: FOLIC ACID 1 MG TAB PO (09:10)
[2018-12-15] MEDS: THIAMINE 100 MG TAB PO (09:10)
[2018-12-15] MEDS: NICOTINE POLACRILEX 2 MG GUM BUCCAL ×3 (10:46→23:53)
[2018-12-15] MEDS: LACTULOSE 30ML CUP PO (11:28)
[2018-12-15] MEDS: MAGNESIUM SULFATE 2 GM/50 ML 50 ML IVPB (11:30)
[2018-12-15] MEDS: SOD CHLORIDE 0.9% 1,000 ML IV (11:30)
[2018-12-15] MEDS: traMADol 50 MG TAB PO ×3 (11:30→23:52)
[2018-12-15] MEDS: INSULIN ASPART [NOVOLOG] 3 ML PEN SC ×3 (13:05→21:00)
[2018-12-15] MEDS: LEVOFLOXACIN 750MG/D5W (PMX) 150 ML IVPB (14:13)
[2018-12-16] MEDS: ACCU-CHEK XX (02:00)
[2018-12-16 07:48] LABS: ADD MAN DIFF? NO
[2018-12-16 07:53] LABS: WHITE BLOOD COUNT 4.7 10^3/ul (4.8-10.8)
[2018-12-16 07:53] LABS: BASOPHIL # 0.1 10^3/ul (0.0-0.1); BASOPHILS % 1.7 % (0.0-2.0); EOSINOPHILS # 0.1 10^3/ul (0.0-0.5); EOSINOPHILS % 1.5 % (0.0-7.0); HEMATOCRIT 35.7 % (42.0-52.0); HEMOGLOBIN 11.8 g/dl (14.0-18.0); LYMPHOCYTES # 1.9 10^3/ul (0.8-2.9); LYMPHOCYTES % 40.8 % (15.0-51.0); MEAN CORPUSCULAR HEMOGLOBIN 32.9 pg (29.0-33.0); MEAN CORPUSCULAR HGB CONC 33.1 g/dl (32.0-37.0); MEAN CORPUSCULAR VOLUME 99.4 fl (82.0-101.0); MEAN PLATELET VOLUME 10.4 fl (7.4-10.4); MONOCYTE # 0.7 10^3/ul (0.3-0.9); MONOCYTES % 15.9 % (0.0-11.0); NEUTROPHIL # 1.8 10^3/ul (1.6-7.5); NEUTROPHILS % 39.2 % (39.0-77.0); PLATELET COUNT 363 10^3/UL (140-415); RED BLOOD COUNT 3.59 10^6/ul (4.70-6.10); RED CELL DISTRIBUTION WIDTH 15.9 % (11.5-14.5)
[2018-12-16] MEDS: INSULIN ASPART [NOVOLOG] 3 ML PEN SC ×4 (07:58→20:12)
[2018-12-16 08:10] LABS: AMMONIA 12 umol/l (9-30)
[2018-12-16 08:18] LABS: ANION GAP 9 (5-13); BLOOD UREA NITROGEN 14 mg/dl (7-20); CALCIUM 9.4 mg/dl (8.4-10.2); CARBON DIOXIDE 25 mmol/L (21-31); CHLORIDE 106 mmol/L (97-110); CREATININE 0.56 mg/dl (0.61-1.24); Estimated GFR > 60 mL/min (>60); GLUCOSE 114 mg/dl (70-220); MAGNESIUM 1.5 mg/dl (1.7-2.5); POTASSIUM 4.4 mmol/L (3.5-5.1); SODIUM 140 mmol/L (135-144)
[2018-12-16] MEDS: THIAMINE 100 MG TAB PO (09:10)
[2018-12-16] MEDS: FOLIC ACID 1 MG TAB PO (09:10)
[2018-12-16] MEDS: FAMOTIDINE 20 MG TAB PO ×2 (09:10→20:09)
[2018-12-16] MEDS: MULTIVITAMINS THERAPEUTIC TAB PO (09:10)
[2018-12-16] MEDS: traMADol 50 MG TAB PO (09:13)
[2018-12-16] MEDS: BUDESONIDE (NEB) 0.5MG/2ML AMP HHN ×2 (09:17→20:05)
[2018-12-16] MEDS: ALBUTEROL/IPRATROPIUM (NEB) 3 ML AMP HHN ×3 (09:17→20:05)
[2018-12-16] MEDS: LEVOFLOXACIN 750 MG TABLET PO (15:14)
[2018-12-16] MEDS: MAGNESIUM OXIDE 400 MG TAB PO (15:14)
[2018-12-16] MEDS: HYDROCODONE/APAP (5/325) TAB PO ×2 (16:11→22:18)
[2018-12-16] MEDS: NICOTINE POLACRILEX 2 MG GUM BUCCAL ×2 (16:11→20:09)
[2018-12-16] MEDS: BENZONATATE 100 MG CAP PO (22:23)
[2018-12-17] MEDS: ACCU-CHEK XX (01:04)
[2018-12-17] MEDS: NICOTINE POLACRILEX 2 MG GUM BUCCAL ×3 (03:48→20:43)
[2018-12-17] MEDS: ONDANSETRON 4 MG INJ IV (03:48)
[2018-12-17] MEDS: HYDROCODONE/APAP (5/325) TAB PO ×3 (04:17→20:34)
[2018-12-17] MEDS: traMADol 50 MG TAB PO ×2 (07:34→16:35)
[2018-12-17] MEDS: INSULIN ASPART [NOVOLOG] 3 ML PEN SC ×4 (07:57→20:37)
[2018-12-17] MEDS: MULTIVITAMINS THERAPEUTIC TAB PO (08:38)
[2018-12-17] MEDS: LEVOFLOXACIN 750 MG TABLET PO (08:38)
[2018-12-17] MEDS: FAMOTIDINE 20 MG TAB PO ×2 (08:38→20:26)
[2018-12-17] MEDS: FOLIC ACID 1 MG TAB PO (08:38)
[2018-12-17] MEDS: THIAMINE 100 MG TAB PO (08:38)
[2018-12-17] MEDS: ALBUTEROL/IPRATROPIUM (NEB) 3 ML AMP HHN ×3 (09:02→19:58)
[2018-12-17] MEDS: BUDESONIDE (NEB) 0.5MG/2ML AMP HHN ×2 (09:02→19:58)
[2018-12-17 09:08] LABS: ADD MAN DIFF? NO
[2018-12-17 09:13] LABS: WHITE BLOOD COUNT 5.5 10^3/ul (4.8-10.8)
[2018-12-17 09:13] LABS: BASOPHIL # 0.1 10^3/ul (0.0-0.1); BASOPHILS % 2.4 % (0.0-2.0); EOSINOPHILS # 0.1 10^3/ul (0.0-0.5); EOSINOPHILS % 1.8 % (0.0-7.0); HEMATOCRIT 38.7 % (42.0-52.0); HEMOGLOBIN 12.6 g/dl (14.0-18.0); LYMPHOCYTES # 1.9 10^3/ul (0.8-2.9); LYMPHOCYTES % 34.2 % (15.0-51.0); MEAN CORPUSCULAR HEMOGLOBIN 32.5 pg (29.0-33.0); MEAN CORPUSCULAR HGB CONC 32.6 g/dl (32.0-37.0); MEAN CORPUSCULAR VOLUME 99.7 fl (82.0-101.0); MEAN PLATELET VOLUME 9.8 fl (7.4-10.4); MONOCYTE # 0.8 10^3/ul (0.3-0.9); MONOCYTES % 14.5 % (0.0-11.0); NEUTROPHIL # 2.6 10^3/ul (1.6-7.5); NEUTROPHILS % 46.4 % (39.0-77.0); PLATELET COUNT 440 10^3/UL (140-415); RED BLOOD COUNT 3.88 10^6/ul (4.70-6.10); RED CELL DISTRIBUTION WIDTH 15.8 % (11.5-14.5)
[2018-12-17 09:34] LABS: ANION GAP 9 (5-13); BLOOD UREA NITROGEN 15 mg/dl (7-20); CALCIUM 9.5 mg/dl (8.4-10.2); CARBON DIOXIDE 27 mmol/L (21-31); CHLORIDE 104 mmol/L (97-110); CREATININE 0.65 mg/dl (0.61-1.24); Estimated GFR > 60 mL/min (>60); GLUCOSE 162 mg/dl (70-220); MAGNESIUM 1.4 mg/dl (1.7-2.5); PHOSPHORUS 4.8 mg/dl (2.5-4.9); POTASSIUM 4.9 mmol/L (3.5-5.1); SODIUM 140 mmol/L (135-144)
[2018-12-17] MEDS: MAGNESIUM SULFATE 2 GM/50 ML 50 ML IVPB (15:50)
[2018-12-17] MEDS ORDERED: NICOTINE POLACRILEX 4 MG GUM BUCCAL (17:00)
[2018-12-17] MEDS: MAGNESIUM OXIDE 400 MG TAB PO (18:55)
[2018-12-18] MEDS: ACCU-CHEK XX (02:00)
[2018-12-18] MEDS: HYDROCODONE/APAP (5/325) TAB PO (06:39)
[2018-12-18] MEDS: NICOTINE POLACRILEX 2 MG GUM BUCCAL (06:58)
[2018-12-18] MEDS: INSULIN ASPART [NOVOLOG] 3 ML PEN SC (08:00)
[2018-12-18] MEDS: BUDESONIDE (NEB) 0.5MG/2ML AMP HHN (08:11)
[2018-12-18] MEDS: ALBUTEROL/IPRATROPIUM (NEB) 3 ML AMP HHN (08:11)
[2018-12-18] MEDS: FOLIC ACID 1 MG TAB PO (08:57)
[2018-12-18] MEDS: LEVOFLOXACIN 750 MG TABLET PO (08:57)
[2018-12-18] MEDS: THIAMINE 100 MG TAB PO (08:57)
[2018-12-18] MEDS: MULTIVITAMINS THERAPEUTIC TAB PO (08:57)
[2018-12-18] MEDS: FAMOTIDINE 20 MG TAB PO (08:57)
[2018-12-18] MEDS: traMADol 50 MG TAB PO (08:58)
== END 2018-12-18 09:34 | disposition left against medical advice (07) | DRG 438 ==
LOC: 2NE 21:56
PROVIDERS: Internal Medicine
DX: K85.20 Alcohol induced acute pancreatitis without necrosis or infection (principal); G92 Toxic encephalopathy; J18.9 Pneumonia, unspecified organism; J96.10 Chronic respiratory failure, unspecified whether with hypoxia or hypercapnia; K86.0 Alcohol-induced chronic pancreatitis; F10.10 Alcohol abuse, uncomplicated; Z59.0 Homelessness; D69.6 Thrombocytopenia, unspecified; T42.4X5A Adverse effect of benzodiazepines, initial encounter; J44.9 Chronic obstructive pulmonary disease, unspecified; F17.200 Nicotine dependence, unspecified, uncomplicated
CPT/HCPCS: 36600; 70450; 71045; 71250; 74170; 80048; 80053; 82140; 82150; 82803; 82962; 83036; 83605; 83690; 83735; 84100; 84132; 84443; 85014; 85018; 85025; 85610; 86704; 86709; 86803; 87040-91; 87340; 93005; 93306; 94640; 94664; 97116; 97161; 97530

== ENCOUNTER 2018-12-19 09:24 | Emergency (ER) | payer OTHER ==
[2018-12-19 11:01] LABS: ADD MAN DIFF? NO
[2018-12-19 11:07] LABS: BASOPHIL # 0.2 10^3/ul (0.0-0.1); BASOPHILS % 2.2 % (0.0-2.0); EOSINOPHILS # 0.1 10^3/ul (0.0-0.5); EOSINOPHILS % 1.5 % (0.0-7.0); HEMATOCRIT 45.3 % (42.0-52.0); HEMOGLOBIN 14.9 g/dl (14.0-18.0); LYMPHOCYTES # 1.6 10^3/ul (0.8-2.9); LYMPHOCYTES % 22.9 % (15.0-51.0); MEAN CORPUSCULAR HEMOGLOBIN 32.5 pg (29.0-33.0); MEAN CORPUSCULAR HGB CONC 32.9 g/dl (32.0-37.0); MEAN CORPUSCULAR VOLUME 98.9 fl (82.0-101.0); MEAN PLATELET VOLUME 9.6 fl (7.4-10.4); MONOCYTE # 0.7 10^3/ul (0.3-0.9); MONOCYTES % 10.7 % (0.0-11.0); NEUTROPHIL # 4.2 10^3/ul (1.6-7.5); NEUTROPHILS % 61.7 % (39.0-77.0); PLATELET COUNT 539 10^3/UL (140-415); RED BLOOD COUNT 4.58 10^6/ul (4.70-6.10); RED CELL DISTRIBUTION WIDTH 15.1 % (11.5-14.5)
[2018-12-19 11:07] LABS: WHITE BLOOD COUNT 6.9 10^3/ul (4.8-10.8)
[2018-12-19 11:27] LABS: ALANINE AMINOTRANSFERASE 62 IU/L (13-69); ALBUMIN 4.6 g/dl (3.3-4.9); ALBUMIN/GLOBULIN RATIO 1.21; ALKALINE PHOSPHATASE 129 IU/L (42-121); ANION GAP 13 (5-13); ASPARTATE AMINO TRANSFERASE 93 IU/L (15-46); BILIRUBIN,INDIRECT 0.1 mg/dl (0-1.1); BILIRUBIN,TOTAL 0.1 mg/dl (0.2-1.3); BLOOD UREA NITROGEN 15 mg/dl (7-20); CALCIUM 10.4 mg/dl (8.4-10.2); CARBON DIOXIDE 26 mmol/L (21-31); CHLORIDE 106 mmol/L (97-110); Estimated GFR > 60 mL/min (>60); GLUCOSE 95 mg/dl (70-220); LIPASE 65 U/L (23-300); POTASSIUM 4.6 mmol/L (3.5-5.1); SODIUM 145 mmol/L (135-144); TOTAL PROTEIN 8.4 g/dl (6.1-8.1)
[2018-12-19 11:36] LABS: TROPONIN-I < 0.012 ng/ml (0.000-0.120)
== END 2018-12-19 12:52 | disposition home or self-care (01) ==
LOC: E/R 09:24
DX: R42 Dizziness and giddiness (principal); J44.9 Chronic obstructive pulmonary disease, unspecified; Z87.891 Personal history of nicotine dependence
CPT/HCPCS: 36415; 71045; 80053; 83690; 84484; 85025; 93005; 99285-25